=== PATIENT | male | born 1990 | race Caucasian/White ===

== ENCOUNTER 2024-03-13 07:45 | Outpatient (CLI) | payer OTHER ==
--- NOTE | 2024-03-13 13:50 | XRAY Report ---
PROCEDURE: Chest 2V INDICATIONS: COUGH TECHNIQUE: 2 views of the chest were acquired. COMPARISON: None. FINDINGS: Surgical changes and devices: None. Lungs and pleura: No pleural effusions or pneumothorax. Lungs are clear. Mediastinum: Mediastinal contours appear normal. Heart size is normal. Bones and chest wall: No suspicious bony lesions. Overlying soft tissues appear unremarkable. IMPRESSION: No acute cardiopulmonary process. Reviewed by: Carla Villa MD on 03/13/2024 1:48 PM PDT Approved by: Carla Villa MD on 03/13/2024 1:48 PM PDT Station ID: [id number]
== END 2024-03-13 08:00 | disposition home or self-care (01) ==
LOC: DI.N 07:45
PROVIDERS: ATTEND Family Medicine
DX: R05.9 Cough, unspecified (principal)